=== PATIENT | female | born 1980 ===

== ENCOUNTER 2017-11-23 09:53 | Emergency (ER) | payer SELFPAY ==
[2017-11-23 10:15] VITALS: BP 110/71; PULSE 85; RESP 20; TEMP 98.4; O2SAT 97
--- NOTE | 2017-11-23 11:25 | C.PDOC ---
History Of Present Illness 37 y/o female presents to the ER complaining of a mild, scant rash which was present yesterday but not today.Patient states that she has the rash for the past 5 weeks. [place] [facility] [place] without any significant improvement.Patient reports that she took Benadryl yesterday. Patient denies having diabetes and using any new medications, food, and detergents. Time Seen by Provider: 11/23/17 11:19 Chief Complaint (Nursing): Allergic Reaction History Per: Patient History/Exam Limitations: no limitations Onset/Duration Of Symptoms: Days Current Symptoms Are (Timing): Still Present Severity: Moderate Past Medical History Reviewed: Historical Data, Nursing Documentation, Vital Signs Vital Signs: Last Vital Signs Temp 98.4 F 11/23/17 10:15 Pulse 85 11/23/17 10:15 Resp 20 11/23/17 10:15 BP 110/71 11/23/17 10:15 Pulse Ox 97 11/23/17 11:51 - Medical History PMH: No Chronic Diseases Surgical History: No Surg Hx Family History: States: No Known Family Hx - Social History Hx Alcohol Use: No Hx Substance Use: No - Immunization History Hx Tetanus Toxoid Vaccination: No Hx Influenza Vaccination: No Hx Pneumococcal Vaccination: No Review Of Systems Except As Marked, All Systems Reviewed And Found Negative. Skin: Positive for: Rash (mild scant rash) Physical Exam - Physical Exam Appears: Non-toxic, No Acute Distress, Other (obese, female) Skin: Normal Color, Warm, Other (vitiligo of palms, few areas of face, and back) Head: Atraumatic, Normacephalic Eye(s): bilateral: Normal Inspection, PERRL Nose: Normal Oral Mucosa: Moist Neck: Supple Chest: Symmetrical Cardiovascular: Rhythm Regular Respiratory: Normal Breath Sounds, No Accessory Muscle Use, No Rales, No Rhonchi , No Wheezing Extremity: Normal ROM Neurological/Psych: Oriented x3, Normal Speech, Normal Cognition, Normal Motor, Normal Sensation ED Course And Treatment O2 Sat by Pulse Oximetry: 97 (RA) Pulse Ox Interpretation: Normal Medical Decision Making Medical Decision Making: no rash now normal eval soaps, meds and food allergies reviewed and educated. Disposition Doctor Will See Patient In The: Office Counseled Patient/Family Regarding: Studies Performed, Diagnosis - Disposition Referrals: [facility] [Outside] Disposition: HOME/ ROUTINE Disposition Time: 11:24 Condition: GOOD Additional Instructions: continue Benadryl 12.5 - 25 mg every 6 hours as needed for pruritic rash suspected to be allergic urticaria. Review meds, soaps and foods as potential allergens Follow-up in our outpatient Clinic as needed. Instructions: Urticaria (ED), Acute Rash (DC) Forms: [employer] (Latvian) - Clinical Impression Clinical Impression: Rash - Scribe Statement The provider has reviewed the documentation as recorded by the Edelmira Lo Provider Attestation: All medical record entries made by the Edelmira were at my direction and personally dictated by me. I have reviewed the chart and agree that the record accurately reflects my personal performance of the history, physical exam, medical decision making, and the department course for this patient. I have also personally directed, reviewed, and agree with the discharge instructions and disposition.
== END 2017-11-23 11:30 | disposition home or self-care (01) ==
LOC: C.ER 09:53
DX: R21 Rash and other nonspecific skin eruption (principal)